=== PATIENT | female | born 1990 | race Caucasian/White ===

== ENCOUNTER 2023-12-14 00:47 | Emergency (ER) | payer SELFPAY ==
[~2023-12-14] VITALS: Ht 154.9 cm; Wt 87.5 kg
[~2023-12-14 00:47] MED LIST: ACET500; ACYC800 PO; AMOX500 PO; Augmentin 875-1 EACH PO; COUGH MEDICINE; IBUP400 PO; IBUP800 PO; LUTERA PO; NAPR375 PO; NAPR500 PO; OXYACE5T PO; PENVK500 PO; PROM25 PO; RXOXYACE PO; TAMS.4ER PO; Veetids 500500 MG PO; Vibramycin100 MG PO
[2023-12-14 01:39] LABS: Source, Urine Clean Catch
[2023-12-14 01:54] LABS: Appearance, Urine Hazy (Clear); Bilirubin, Urine Neg (Neg); Blood, Urine 4+ (Neg); Color, Urine Yellow (P-Yellow); Glucose Qualitative, Urine Neg (Neg); Ketones, Urine 4+ (Neg); Leukocyte Esterase, Urine Neg (Neg); Nitrite, Urine Neg (Neg); Protein, Urine 2+ (Neg); Urobilinogen, Urine 1+ (Normal)
[2023-12-14 02:04] LABS: White Blood Cells, Urine 0-2 /hpf (0-5)
[2023-12-14 02:05] LABS: Bacteria Few /hpf; Squamous Epithelial Cells Many /hpf (Few)
[2023-12-14] MEDS ORDERED: NS 1,000 ML IV SCH (04:15)
[2023-12-14] MEDS ORDERED: Ketorolac Tromethamine 30mg Vial IV ONE (04:20)
[2023-12-14 04:57] LABS: BASOPHILS ABSOLUTE AUTO 0.05 K/mm3 (0.00-0.23); BASOPHILS PERCENT AUTO 0 % (0-2); EOSINOPHILS PERCENT AUTO 0 % (0-6); Hematocrit 39.6 % (33.0-51.0); Hemoglobin 13.8 g/dL (11.5-16.0); IMMATURE GRAN PERCENT AUTO 1 % (0-1); LYMPHOCYTES PERCENT AUTO 5 % (21-46); MONOCYTES ABSOLUTE AUTO 0.91 K/mm3 (0.16-1.47); MONOCYTES PERCENT AUTO 5 % (4-13); Mean Corpuscular HGB 29.3 pg (26.0-34.0); Mean Corpuscular HGB Conc 34.8 g/dL (31.5-36.5); Mean Corpuscular Volume 84 fL (80-100); Mean Platelet Volume 9.6 fL (9.1-12.4); NEUTROPHILS ABSOLUTE AUTO 17.97 K/mm3 (1.96-9.15); NEUTROPHILS PERCENT AUTO 90 % (41-73); Platelet Count 385 K/mm3 (150-400); RDW Coefficient Variation 12.5 % (11.7-14.2); Red Blood Cell Count 4.71 M/mm3 (3.80-5.20); White Blood Cell Count 19.93 K/mm3 (4.00-11.30)
[2023-12-14 05:08] LABS: Albumin, Blood 4.4 g/dL (3.4-5.0); Albumin/Globulin Ratio 1.4 (0.8-1.8); Bilirubin, Total 0.5 mg/dL (0.1-1.0); Bun/Creatinine Ratio 18.2 (12.0-20.0); Calcium, Blood 9.1 mg/dL (8.5-10.1); Creatinine, Blood 0.71 mg/dL (0.40-1.00); Globulin, Blood 3.2 g/dL (2.2-4.0); Total Protein, Blood 7.6 g/dL (6.4-8.2)
[2023-12-14] MEDS ORDERED: Tamsulosin HCl 0.4 MG Cap PO ONE (06:30)
[2023-12-14] MEDS ORDERED: Morphine Sulfate 4 MG/1 ML Injection IV ONE (06:30)
[2023-12-14] MEDS ORDERED: RX Prepack 6 Tabs Oxycodone 5mg UD ONE (06:50)
[2023-12-14] MEDS ORDERED: TAMS.4ER PO (06:53)
[2023-12-14] MEDS ORDERED: RX Prepack 2 Tabs Ondansetron ODT 4MG UD ONE (06:55)
[2023-12-14] MEDS ORDERED: OXYC5 PO (07:11)
[2023-12-14 07:37] VITALS: BP 121/85
== END 2023-12-14 08:26 | disposition home or self-care (01) ==
LOC: ER 00:47
PROVIDERS: Emergency Medicine
DX: N13.2 Hydronephrosis with renal and ureteral calculous obstruction (principal); E86.0 Dehydration; D72.829 Elevated white blood cell count, unspecified; Z79.2 Long term (current) use of antibiotics; Z88.0 Allergy status to penicillin
CPT/HCPCS: 74177; 80053; 81001; 85025; 96361; 96374-59; 96375; 99284-25; A9270; J1885; J2270; J7030; Q9967